=== PATIENT | female | born 1965 ===

== ENCOUNTER 2019-06-26 08:45 | Inpatient (IN) | payer OTHER ==
[~2019-06-26] VITALS: Ht 157.5 cm; Wt 63.5 kg
[2019-06-26] MEDS ORDERED: PERCOCET 10-321 EACH PO (09:59)
[2019-06-26] MEDS ORDERED: LORAZEPAM1 MG PO (10:00)
[2019-06-26] MEDS ORDERED: KISQALI PO (10:00)
[2019-06-26] MEDS ORDERED: ASPIR 8181 MG PO (10:00)
[2019-06-26] MEDS ORDERED: BUPROPION HCL150 MG PO (10:01)
[2019-06-26] MEDS ORDERED: METFORMIN HCL500 M3 PO (10:01)
[2019-07-02] MEDS ORDERED: TRAZODONE HCL50 MG (09:01)
[2019-07-02] MEDS ORDERED: SIMVASTATIN40 MG (09:01)
[2019-07-02] MEDS ORDERED: METFORMIN HCL500 M4 PO (09:03)
[2019-07-03] MEDS ORDERED: PERCOCET 5-3251 EACH PO (07:48)
[2019-07-03] MEDS ORDERED: XARELTO10 MG PO (07:48)
[2019-07-03] MEDS ORDERED: INTEGRA PLUS C1 EACH PO (07:48)
[2019-07-03] MEDS ORDERED: BACTRIM DS TAB1 EACH PO (07:48)
== END 2019-07-03 12:42 | disposition home or self-care (01) | DRG 482 ==
LOC: O/R 07-02 07:00 → SURG 07-02 07:00 → SURH 07-02 08:45 → O/R 07-02 08:45 → SURH 07-02 10:45 → SURG 07-02 17:19
PROVIDERS: ADMIT Orthopaedic Surgery Sports Medicine
PROC: 0QH736Z Insertion of Intramedullary Internal Fixation Device into Left Upper Femur, Percutaneous Approach (ICD-10-PCS; principal; 2019-07-02 10:45)
DX: C79.51 Secondary malignant neoplasm of bone (principal); Z40.8 Encounter for other prophylactic surgery